=== PATIENT | female | born 1950 | race Hispanic/Latino ===

== ENCOUNTER → 2022-07-29 | Outpatient (CLI) | payer OTHER | LOC: MRI 12:41 | PROVIDERS: ATTEND Family Medicine | DX: M54.12 Radiculopathy, cervical region (principal) | CPT/HCPCS: 72141 ==

== ENCOUNTER 2024-03-25 08:53 | Outpatient (RCR) | payer OTHER ==
[~2024-03-25 08:53] MED LIST: CALCIUM D3 PO; CRESTOR10 MG PO; ELIQUIS5 MG PO; LOSARTAN POTAS100 MG PO; METOPROLOL SUCC25 MG PO; MULTI-VITAMIN1 EACH PO; NEURONTIN100 MG PO; OXYBUTYNIN CHLO10 MG PO
== END 2024-04-14 | disposition home or self-care (01) ==
LOC: PT 08:53
PROVIDERS: ATTEND Physician Assistant
DX: Z47.1 Aftercare following joint replacement surgery (principal); Z96.652 Presence of left artificial knee joint; M62.81 Muscle weakness (generalized)